=== PATIENT | female | born 1965 ===

== ENCOUNTER → 2016-08-04 | Outpatient (CLI) | payer BC | END | disposition home or self-care (01) | LOC: C.PAPS 10:09 | PROVIDERS: ATTEND Obstetrics & Gynecology | DX: Z01.419 Encounter for gynecological examination (general) (routine) without abnormal findings (principal) ==

== ENCOUNTER → 2016-08-11 | Outpatient (CLI) | payer BC, OTHER ==
[2016-08-11 08:51] LABS: PATIENT HEIGHT 157.5 cm
[2016-08-11 13:31] LABS: URINE APPEARANCE TURBID (CLEAR); URINE BILIRUBIN NEG (NEG); URINE COLOR YELLOW; URINE EPITHELIAL CELL AUTO >30 /lpf (0-5); URINE NITRITE NEG (NEG); URINE SPECIFIC GRAVITY 1.022 (1.000-1.030); UROBILINOGEN NEG (NEG)
[2016-08-11 13:39] LABS: MANUAL MICROSCOPIC REQUIRED? NO; REVIEW REQ? NO
[2016-08-11 13:47] LABS: URINE TOTAL PROTEIN 6.4 mg/dl (0-11.9)
[2016-08-11 14:01] LABS: URINE TOTAL PROTEIN < 5.0 mg/dl (0-11.9)
[2016-08-11 15:39] LABS: URINE COLLECTION TIME 24 HOURS; URINE TOTAL PROTEIN CALC < 150.0 mg/24 hr (0-149.1)
== END | disposition home or self-care (01) ==
LOC: C.LABMFLN 08:55
PROVIDERS: ATTEND Transplant Surgery
DX: Z52.4 Kidney donor (principal)

== ENCOUNTER → 2016-11-11 | Outpatient (CLI) | payer OTHER | END | disposition home or self-care (01) | LOC: C.LABMFLN 10:29 | PROVIDERS: ATTEND Family Medicine | DX: R63.5 Abnormal weight gain (principal) ==

== ENCOUNTER → 2017-04-30 | Outpatient (CLI) | payer BC ==
[2017-04-30 17:50] LABS: BASO % 0.2 %; BASO ABS # 0.02 K/uL (0-0.2); EOS % 0.9 %; EOS ABS # 0.08 K/uL (0-0.5); HEMATOCRIT 41.5 % (37-47); HEMOGLOBIN 14.1 g/dL (12.0-16.0); IG# 0.02 K/uL (0.00-0.02); LYMPH % 30.4 %; MEAN CELL VOLUME 90.4 fL (80-100); MEAN CORPUSCULAR HEMOGLOBIN 30.7 pg (25-34); MEAN PLATELET VOLUME 9.7 fL (7.4-10.4); MONO % 7.8 %; MONO ABS # 0.67 K/uL (0.11-0.59); NEUT % 60.5 %; NEUT ABS # 5.15 K/uL (1.4-6.5); PLATELET COUNT 276 K/uL (130-400); RED CELL DISTRIBUTION WIDTH CV 13.9 % (11.5-14.5); RED CELL DISTRIBUTION WIDTH SD 45.2 fL (36.4-46.3); WHITE BLOOD COUNT 8.54 K/uL (4.8-10.8)
[2017-04-30 18:40] LABS: BLOOD UREA NITROGEN 14 mg/dl (7-18); CALCIUM 9.5 mg/dl (8.5-10.1); CARBON DIOXIDE 31 mmol/L (21-32); CREATININE 0.87 mg/dl (0.60-1.20); GLUCOSE 86 mg/dl (70-99); POTASSIUM 3.9 mmol/L (3.5-5.1); SODIUM 135 mmol/L (136-145)
== END | disposition home or self-care (01) ==
LOC: C.LABMFLN 15:49
PROVIDERS: ATTEND Family Medicine
DX: R00.2 Palpitations (principal)